=== PATIENT | female | born 1950 | race African-American/Black ===

== ENCOUNTER 2019-03-31 18:01 | Emergency (ER) | payer OTHER ==
[~2019-03-31] VITALS: Ht 172.7 cm; Wt 61.2 kg
[2019-03-31 18:15] VITALS: BP 154/79
--- NOTE | 2019-03-31 18:37 | Emergency Room Report ---
History of Present Illness General Chief Complaint: Multiple Trauma/Fall Source: Patient Present Illness HPI 68-year-old female presents to the emergency department complaining of 5 out of 10 severity pain to the left lateral hip and midline low back as well as the lateral left lower ribs. Status post mechanical slip and fall. Patient states that she slipped on some mashed potatoes and landed on the ground. Patient states she attempted to break the fall with her left arm however she still landed on her left side on her ribs and her hip. Patient states she also has some tenderness to the left upper arm as well. Patient denies shoulder pain. Loss of consciousness she denies taking blood thinning medications. Denies numbness tingling or loss of sensation or gross motor movements of the extremities, incontinence of bowel or bladder. Denies CP, Palpitations, N/V, AMS , dizziness, Changes in Vision, weakness or a sudden severe headache. She took IBU [employer]IST. Pain exacerbated with walking, bending and deep breaths. Allergies: Coded Allergies: No Known Allergies (Unverified , 03/31/19) Patient History Past Medical History: see triage record Past Surgical History: none Pertinent Family History: none Reviewed Nursing Documentation: PMH: Agreed; PSxH: Agreed Nursing Documentation-PMH Past Medical History: No History, Except For Hx Hypertension: Yes Review of Systems All Other Systems: negative except mentioned in HPI Physical Exam Vital Signs Date Time Temp Pulse Resp B/P (MAP) Pulse Ox O2 Delivery O2 Flow Rate FiO2 03/31/19 18:11 97.9 69 16 154/79 (104) 94 Room Air Sp02 EP Interpretation: reviewed, normal General Appearance: no apparent distress, alert, GCS 15, non-toxic Head: normocephalic, atraumatic Eyes: bilateral eye normal inspection, bilateral eye PERRL ENT: hearing grossly normal, normal voice Neck: full range of motion, no bony tend, other - no midline neck pain/ tenderness, step-offs, or obvious deformity Respiratory: lungs clear, normal breath sounds, speaking full sentences, other - TTp to the lateral lower left ribs. no flail chest, CTA, no bruises noted. Cardiovascular #1: regular rate, rhythm Gastrointestinal: non tender, soft, non-distended, no guarding Musculoskeletal: back normal, gait/station normal, normal range of motion, tender - TTP to the lateral upper humerus of the left arm. FROM with pain, no obvious deformity. TTP to the left Hip laterally and posteriorly. pt. ambulatory with no discrepency in leg length. TTP to the left lateral and midline lumbar spine. no obivous defromity noted. Neurologic: alert, oriented x3, responsive, motor strength/tone normal, sensory intact, speech normal, other - no saddle anesthesia or incontinence., grossly normal Psychiatric: judgement/insight normal Medical Decision Making PA Attestation Dr. Ferreira is my supervising Physician whom patient management has been discussed with. Diagnostic Impression: Primary Impression: Contusion, multiple sites Additional Impression: Back pain Qualified Codes: M54.5 - Low back pain ER Course 68-year-old female presents to the emergency department complaining of 5 out of 10 severity pain to the left lateral hip and midline low back as well as the lateral left lower ribs. Status post mechanical slip and fall. Patient states that she slipped on some mashed potatoes and landed on the ground. Patient states she attempted to break the fall with her left arm however she still landed on her left side on her ribs and her hip. Patient states she also has some tenderness to the left upper arm as well. Patient denies shoulder pain. Loss of consciousness she denies taking blood thinning medications. Denies numbness tingling or loss of sensation or gross motor movements of the extremities, incontinence of bowel or bladder. Denies CP, Palpitations, N/V, AMS , dizziness, Changes in Vision, weakness or a sudden severe headache. She took IBU [employer] E[employer]IST. Pain exacerbated with walking, bending and deep breaths. Ddx considered but are not limited to Fracture, dislocation, contusion, Sprain/ Strain/Spasm just to name a few Vital signs: are WNL, pt. is afebrile H&PE are most consistent with musculoskeletal injury will perform imaging to r/ o fractures/dislocations. ORDERS: - X-ray Left Humerus 2 views - negative for fx, Dislocation, or significant soft tissue injury, per preliminary read in ED, and signed by TOSHA Carr , my supervising physician has reviewed, and agrees with my interpretation. -CT Chest, Abdomen, and Pelvis without Contrast: ED INTERVENTIONS: - Tylenol PO I discussed the CT findings with this patient regarding pulmonary nodule and the fact that she is high risk due to smoking history. I emphasized that the patient needs to follow-up and have repeat CAT scan performed to evaluate for possible neoplasm. Given an official copy of her CAT scan results, this important finding of the pulmonary nodule was highlighted for her. She verbalized her understanding regarding the possibility that this could be or become cancerous and that close follow up is necessary. -I do not identify an emergent condition at this time. With current presentation , pt. is stable for close outpatient follow up and conservative treatment. D/ w pt. to return promptly to ED with worsening or new symptoms.- Pt. verbalizes' understanding and agreement with proposed treatment plan. DISCHARGE: At this time pt. is stable for d/c to home. Will provide printed patient care instructions, and any necessary prescriptions. Care plan and follow up instructions have been discussed with the patient prior to discharge. Other X-Ray Diagnostic Results Other X-Ray Diagnostic Results : X-Ray ordered: Left Humerus # of Views/Limited Vs Complete: 2 View Indication: Pain EP Interpretation: Yes PA Xray: Interpretation reviewed, by supervising MD, and agrees with findings. Interpretation: no dislocation, no soft tissue swelling, no fractures Impression: No acute disease Electronically Signed by: Chiquis Carr PA-C CT/MRI/US Diagnostic Results CT/MRI/US Diagnostic Results : Imaging Test Ordered: CT Chest, Abdomen, and Pelvis without Contrast Impression "No acute findings. Dental finding of a 5 mm indeterminate pulmonary nodule in the left lower lobe." Per official radiology report- Please see report for specific details. Last Vital Signs Date Time Temp Pulse Resp B/P (MAP) Pulse Ox O2 Delivery O2 Flow Rate FiO2 03/31/19 18:11 97.9 69 16 154/79 (104) 94 Room Air Status: improved Disposition: HOME, SELF-CARE Condition: Stable Scripts Acetaminophen* (TYLENOL EXTRA STRENGTH*) 500 Mg Tablet 500 MG ORAL Q6H, #20 TAB 0 Refills Prov: Chiquis Carr 03/31/19 Methocarbamol* (ROBAXIN-750*) 750 Mg Tablet 750 MG PO QID, #28 TAB 0 Refills Prov: Chiquis Carr 03/31/19 Patient Instructions: Back Pain, Adult, [id number], Chest Contusion, Easy-to- Read, Contusion, [id number] Additional Instructions: Take medications as directed. Follow up with a Primary Care Provider in 3-5 days, even if your symptoms have resolved. --Please review list of primary care clinics, if you do not already have a primary care provider Return sooner to ED if new symptoms occur, or current symptoms become worse. Do not drink alcohol, drive, or operate heavy machinery while taking Robaxin ( Muscle Relaxers) as this may cause drowsiness. - Please note that this Emergency Department Report was dictated using [employer] associate technology software, occasionally this can lead to erroneous entry secondary to interpretation by the dictation equipment. Chiquis Carr Mar 31, 2019 18:37
--- NOTE | 2019-03-31 18:46 | NUR ---
ED Nurse Note: Patient presents to ER due to fall at grocery store. Patient was walking, did not see potatoes on the floor, slipped and fell. Reports no head injury. C/O pain over the LUE, left hip and knee. Ambulating to the room with steady gait. Regular, unlabored breathing noted. No facial grimacing or guarding noted.
--- NOTE | 2019-03-31 19:16 | NUR ---
HAND-OFF: Report given to ADIEL Fu.
--- NOTE | 2019-03-31 19:24 | Diagnostic Imaging Report ---
EXAM: XR Left Humerus, 2 or More Views CLINICAL HISTORY: PAIN TECHNIQUE: Frontal and lateral views of the left humerus. COMPARISON: No relevant prior studies available. FINDINGS: Bones/joints: No acute fracture or malalignment. Osteopenia. Soft tissues: Unremarkable. Other findings: Postsurgical changes are present in the forearm. IMPRESSION: No acute fracture or malalignment.
--- NOTE | 2019-03-31 19:33 | Diagnostic Imaging Report ---
EXAM: CT Chest Without Intravenous Contrast CLINICAL HISTORY: PAIN TECHNIQUE: Axial computed tomography images of the chest without intravenous contrast. CTDI is 0.15, 11.63 mGy and DLP is 779 mGy-cm. One or more of the following dose reduction techniques were used: automated exposure control, adjustment of the mA and/or kV according to patient size, use of iterative reconstruction technique. COMPARISON: No relevant prior studies available. FINDINGS: Lungs: Indeterminate subcentimeter bilateral pulmonary nodules measuring up to 5 mm in the left lower lobe. Mild bilateral peribronchial thickening and atelectasis or scar. No consolidation or mass. Pleural space: Unremarkable. No pneumothorax. No significant effusion. Heart: Unremarkable. No cardiomegaly. No significant pericardial effusion. Bones/joints: Unremarkable. No acute fracture. No dislocation. Soft tissues: Unremarkable. Vasculature: Aortic atherosclerosis. Ectasia of the root of the thoracic aorta. Calcification of the coronary arteries. No thoracic aortic aneurysm. Lymph nodes: Calcified bilateral hilar lymph nodes are compatible with the sequela of prior granulomatous disease. IMPRESSION: No acute findings. Indeterminate subcentimeter bilateral pulmonary nodules measuring up to 5 mm in the left lower lobe. For low-risk patients, no follow-up is necessary. For high-risk patients (smoking history or other known risk factors) an optional chest CT at 12 months could be performed. EXAM: CT Abdomen and Pelvis Without Intravenous Contrast CLINICAL HISTORY: PAIN TECHNIQUE: Axial computed tomography images of the abdomen and pelvis without intravenous contrast. CTDI is 0.15, 11.63 mGy and DLP is 779 mGy-cm. One or more of the following dose reduction techniques were used: automated exposure control, adjustment of the mA and/or kV according to patient size, use of iterative reconstruction technique. COMPARISON: No relevant prior studies available. FINDINGS: Lung bases: Unremarkable. No mass. No consolidation. ABDOMEN: Liver: Nodular hepatic contour. Gallbladder and bile ducts: Cholelithiasis. Pancreas: Unremarkable. Spleen: Unremarkable. Adrenals: Unremarkable. Kidneys and ureters: A 2 mm nonobstructing calculus is present in the right kidney. No hydroureteronephrosis. Stomach and bowel: Unremarkable. Bowel is nondilated. PELVIS: Appendix: No findings to suggest acute appendicitis. Bladder: Unremarkable. No calcified stones. Reproductive: Unremarkable as visualized. ABDOMEN and PELVIS: Intraperitoneal space: Unremarkable. No free air. Bones/joints: No acute osseous abnormality. Soft tissues: Unremarkable. Vasculature: Aortic atherosclerosis. No abdominal aortic aneurysm. Lymph nodes: Unremarkable. IMPRESSION: No acute findings. Cirrhosis.
[2019-03-31] MEDS ORDERED: TYLENOL EXTRA500 MG ORAL (20:11)
[2019-03-31] MEDS ORDERED: ROBAXIN-750750 MG PO (20:11)
[2019-03-31 20:25] VITALS: BP 150/78
--- NOTE | 2019-03-31 20:25 | NUR ---
ER Nurse Note: Pt seen, treated, medically cleared for discharge by ERMD. Discharge instuctions and prescriptions given with repeat verbalization by pt. All orders completed per ERMD orders. Pt a&ox4, VSS, no signs of distress. Pt denies pain. ID band removed. Pt ambulaitory with steady gait, left with all belongings, left with own transportation.
--- NOTE | 2019-04-01 01:50 | NUR ---
Note undone in EDM - 04/01/19 at 0151 by [email or web address] ER Nurse Note: Pt seen, treated, medically cleared for discharge by ERMD. Discharge instuctions and prescriptions given with repeat verbalization by pt. All orders completed per ERMD orders. Pt a&ox4, VSS, no signs of distress. Pt denies pain. ID band removed. Pt ambulaitory with steady gait, left with all belongings, left with own transportation.
== END 2019-03-31 20:25 | disposition home or self-care (01) ==
LOC: EMR 18:44
DX: S70.02XA Contusion of left hip, initial encounter (principal); S40.022A Contusion of left upper arm, initial encounter; S30.0XXA Contusion of lower back and pelvis, initial encounter; M54.5 Low back pain; R07.81 Pleurodynia; I10 Essential (primary) hypertension; W01.0XXA Fall on same level from slipping, tripping and stumbling without subsequent striking against object, initial encounter; Y92.9 Unspecified place or not applicable
CPT/HCPCS: 71250; 74176; 99284